=== PATIENT | female | born 1975 | race Caucasian/White ===

== ENCOUNTER 2017-12-04 08:11 | Outpatient (CLI) | payer BC ==
--- NOTE | 2017-12-04 14:15 | NM ---
NUCLEAR MEDICINE PARATHYROID SESTAMIBI SCAN: 12/04/2017 HISTORY: Hyperparathyroidism. History of thyroidectomy. TECHNIQUE: Anterior MALAY and SAENZ imaging of the neck is obtained immediately, one hour following, and two hours f ollowing the intravenous administration of 26.4 millicuries technetium 99m labeled sestamibi. SPECT imaging of the neck, in the axial, coronal, and sagittal planes, is then obtained. FINDINGS: There is no radiotracer activity overlying the region of the thyroid bed on the immediate one hour or two hour post injecting imaging. SPECT imaging demonstrates no abnormal radiotracer activity in the thyroidectomy bed. Salivary gland activity is noted on all provided imaging. IMPRESSION: No scintigraphic evidence of abnormal parathyroid tissue. POS: ERIKA
== END 2017-12-04 08:12 | disposition home or self-care (01) ==
LOC: NM 08:11
PROVIDERS: ATTEND Specialist
DX: E21.3 Hyperparathyroidism, unspecified (principal)
CPT/HCPCS: 78072; A9500

== ENCOUNTER 2017-12-19 07:39 | Outpatient (CLI) | payer BC | END 2017-12-19 07:40 | disposition home or self-care (01) | LOC: BICCT 07:39 | PROVIDERS: ATTEND Specialist | DX: E21.3 Hyperparathyroidism, unspecified (principal); E89.0 Postprocedural hypothyroidism | CPT/HCPCS: 70492 ==

== ENCOUNTER 2019-09-03 06:35 | Outpatient (CLI) | payer BC, OTHER ==
[2019-09-03 18:04] LABS: SARS-CoV-2 MS2 Positive; SARS-CoV-2 N Gene Negative; SARS-CoV-2 S Gene Negative; SARS-CoV-2 orf1ab Negative
== END 2019-09-03 06:36 | disposition home or self-care (01) ==
LOC: LABBT 06:35
PROVIDERS: ATTEND Neurological Surgery
DX: Z01.812 Encounter for preprocedural laboratory examination (principal); Z11.59 Encounter for screening for other viral diseases; M54.12 Radiculopathy, cervical region
CPT/HCPCS: 87635; U0003

== ENCOUNTER 2019-09-06 05:35 | Day surgery (SDC) | payer BC ==
[2019-09-03 09:57] VITALS: BMI 28.6
--- NOTE | 2019-09-05 16:09 | HP ---
HISTORY OF PRESENT ILLNESS: Ms. Stokes is a pleasant 44-year-old woman, here today to discuss severe bilateral upper extremity symptoms of neck pain that radiates into the bilateral shoulders as well as some extension into the biceps, but also at times the triceps, fitting potentially C6 and C7 pattern. She has an MRI both from 2017 and then a more recent one at [facility] that reveals significant foraminal stenosis at C5-C6 and C6-C7 that would well fit her patterns of pain. She has attempted epidural steroid injections and exercises that unfortunately had provided minimal relief. PHYSICAL EXAMINATION: On exam, she is alert and oriented x3. Gait is normal. No ataxia. She has negative Spurling's bilaterally. Has some pain with movement in the right upper extremity within the shoulder. PAST MEDICAL HISTORY: Significant for kidney stones, hypothyroidism, anemia. PAST SURGICAL HISTORY: Cholecystectomy, hysterectomy, thyroidectomy, unspecified ear surgery. MEDICATIONS: Gabapentin. ALLERGIES: NO KNOWN DRUG ALLERGIES. ASSESSMENT: Cervical radiculopathy. PLAN: Dr. Medeiros met with the patient, reviewed imaging, and advocated for C5 through C7 ACDF. He explained to the patient the risks, benefits, and alternatives to the procedure. The patient expressed understanding and elected to move forward with surgery as discussed. I do believe the patient is mentally competent and capable of making medical decisions for herself. We will move forward with surgery as planned. Job ID: [id number]
[2019-09-06] MEDS ORDERED: Thrombin 5000 UNITS/5 ML VIAL ONE ×2 (06:26→08:34)
[2019-09-06] MEDS ORDERED: HYDROmorphone 2 MG/ML VIAL ONE ×2 (06:44→07:28)
[2019-09-06] MEDS ORDERED: Midazolam HCl 2 mg/2 ml Vial ONE ×2 (06:51→07:28)
[2019-09-06] MEDS ORDERED: HYDROcodone/Acetaminophen 5/325 mg Tablet ONE (09:55)
[2019-09-06] MEDS ORDERED: Ondansetron PF 4 MG/2 ML Vial ONE ×2 (11:16→12:15)
[2019-09-06] MEDS ORDERED: Ondansetron ODT 4 MG TAB ONE (11:17)
[2019-09-06] MEDS ORDERED: Lidocaine 1% PF 5 ML VIAL ONE ×2 (12:15)
[2019-09-06] MEDS ORDERED: Glycopyrrolate 0.2 MG/ML 5 ML SYRINGE ONE (12:15)
[2019-09-06] MEDS ORDERED: Dexamethasone 20 MG/5 ML VIAL ONE (12:15)
[2019-09-06] MEDS ORDERED: Rocuronium Bromide 10 MG/ML (10ML VIAL) ONE (12:15)
[2019-09-06] MEDS ORDERED: PROPOFOL 200 MG/20 ML VIAL ONE (12:15)
--- NOTE | 2019-09-06 13:22 | OP ---
DATE OF PROCEDURE: 09/06/2019 PV INSTALLER TECH: Fady Morales PA-C INDICATION: Pain. DIAGNOSIS: Cervical radiculopathy. PROCEDURE PERFORMED: Anterior cervical diskectomy and fusion, C5 to C7. DESCRIPTION OF PROCEDURE: The patient was brought into the operating room and placed under general anesthesia. She was placed on table in a supine position. A transverse incision was planned over the lateral aspect of the neck on the right. After prepping and draping and after an appropriate preoperative pause, the incision was created. The underlying platysma muscle was identified and incised. A blunt tissue plane anterior to the sternocleidomastoid muscle was used to gain access to the prevertebral space. Self-retaining retractors were placed. The C-arm images were obtained to confirm the appropriate level. An annulotomy was performed in the C6-C7 disk space, where all disk material as well as anterior and posterior osteophytes were removed. After completing the decompression, a 7-mm lordotic PEEK cage packed with allograft and autograft material was placed within the interbody space. We then redirected our attention level above at C5-C6, where again an annulotomy was performed. All disk material as well as anterior and posterior osteophytes were removed. After decompressing that segment, a 6-mm lordotic PEEK cage packed with allograft and autograft material was placed within the interbody space. An anterior cervical plate was then fashioned to the front of spine and secured with a total of 6 screws. Midline and lateral structures were inspected and found to be free from significant trauma. The wound was irrigated. Hemostasis was maintained throughout. The wound was then closed in anatomic layers and a pressure dressing was applied. There were no known procedural complications. Job ID: [id number]
== END 2019-09-06 12:05 | disposition home or self-care (01) ==
LOC: SDC 05:35
PROVIDERS: ATTEND Neurological Surgery
PROC: 0RG20A0 Fusion of 2 or more Cervical Vertebral Joints with Interbody Fusion Device, Anterior Approach, Anterior Column, Open Approach (ICD-10-PCS; principal; 2019-09-06)
PROC: 0RG2070 Fusion of 2 or more Cervical Vertebral Joints with Autologous Tissue Substitute, Anterior Approach, Anterior Column, Open Approach (ICD-10-PCS; principal; 2019-09-06)
PROC: 0RT30ZZ Resection of Cervical Vertebral Disc, Open Approach (ICD-10-PCS; principal; 2019-09-06)
DX: M54.12 Radiculopathy, cervical region (principal); E03.9 Hypothyroidism, unspecified; D64.9 Anemia, unspecified; Z79.899 Other long term (current) drug therapy; Z88.2 Allergy status to sulfonamides; Z88.5 Allergy status to narcotic agent; Z88.6 Allergy status to analgesic agent
CPT/HCPCS: 76000; C1713; C1776; J0690; J1100; J1170; J2001; J2250; J2405; J2704; Q0162

== ENCOUNTER 2019-10-17 08:13 | Outpatient (CLI) | payer BC ==
--- NOTE | 2019-10-17 09:04 | RAD ---
Exam: 3 views cervical spine HISTORY: Cervical radiculopathy. Previous cervical fusion. FINDINGS: Predental space is normal. No prevertebral soft tissue swelling. Cervical spine vertebral b rachael heights are maintained. There is no fracture. Straightening of cervical lordosis as noted. There is an anterior fusion plate with transvertebral body screw at C5, C6 and C7. No perihardware viet cency. C5-C6 and C6-C7 disc prosthesis Grade 1 anterolisthesis of C3 upon C4 and C4. On the open-mouth projection, lateral masses of C1 and C2 articulate probably. Intact odontoid proces s IMPRESSION: Uncomplicated cervical fusion from C5 through C7.
== END 2019-10-17 08:14 | disposition home or self-care (01) ==
LOC: TBSIIMAG 08:13
PROVIDERS: ATTEND Neurological Surgery
DX: M54.12 Radiculopathy, cervical region (principal); Z98.1 Arthrodesis status
CPT/HCPCS: 72040

== ENCOUNTER 2022-05-04 10:24 | Outpatient (CLI) | payer BC ==
[~2022-05-04 10:24] MED LIST: Iopamidol 370 76% 100 ML VIAL ONE
== END 2022-05-04 10:25 | disposition home or self-care (01) ==
LOC: CT 10:24
PROVIDERS: ATTEND Physician Assistant Medical
DX: R10.32 Left lower quadrant pain (principal); K57.30 Diverticulosis of large intestine without perforation or abscess without bleeding
CPT/HCPCS: 74177

== ENCOUNTER 2022-05-30 07:30 | Inpatient (IN) | payer BC ==
[2022-05-31 12:15] VITALS: BMI 31.0
[2022-06-02 07:48] LABS: SARS-CoV-2 NAA Rapid Test Not Detected (NotDetected)
[2022-06-02] MEDS ORDERED: Bupivacaine PF 0.5% 30 ML VIAL ONE (08:03)
[2022-06-02] MEDS ORDERED: Midazolam HCl 2 mg/2 ml Vial ONE ×2 (08:03→08:16)
[2022-06-02] MEDS ORDERED: SUGAMMADEX SODIUM 200 MG/2 ML VIAL ONE (08:33)
[2022-06-02] MEDS ORDERED: HYDROmorphone 2 MG/ML VIAL ONE (08:33)
[2022-06-02] MEDS ORDERED: Sodium Chloride 0.9% 100 ML ONE (08:44)
[2022-06-02] MEDS ORDERED: cefOXitin 2 GM VIAL ONE (08:44)
[2022-06-02] MEDS ORDERED: Ondansetron PF 4 MG/2 ML Vial ONE (09:00)
[2022-06-02] MEDS ORDERED: Dexamethasone 20 MG/5 ML VIAL ONE (09:00)
[2022-06-02] MEDS ORDERED: Rocuronium Bromide 10 MG/ML (10ML VIAL) ONE (09:00)
[2022-06-02] MEDS ORDERED: PHENYLEPHRINE-NS 100 MCG/ML 10 ML SYRINGE ONE (09:00)
[2022-06-02] MEDS ORDERED: Lidocaine 1% PF 5 ML VIAL ONE (09:00)
[2022-06-02] MEDS ORDERED: PROPOFOL 200 MG/20 ML VIAL ONE (09:00)
[2022-06-02] MEDS ORDERED: Promethazine HCl 25 MG/ML VIAL IM PRN ×3 (11:03→12:23)
[2022-06-02] MEDS ORDERED: HYDROmorphone 10 mg/100 ml CADD IVPB PRN (11:03)
[2022-06-02] MEDS ORDERED: Ondansetron HCl/PF 4 MG/2 ML Vial IVP PRN (11:03)
[2022-06-02] MEDS ORDERED: Naloxone HCl 0.4 mg/ml Vial IV PRN (11:03)
[2022-06-02] MEDS ORDERED: Ondansetron PF 4 MG/2 ML Vial IVP PRN ×2 (11:03→12:23)
[2022-06-02] MEDS ORDERED: diphenhydrAMINE 50 MG/ML VIAL IVP PRN (11:03)
[2022-06-02] MEDS ORDERED: HYDROmorphone 2 MG/ML VIAL SLOW IVP PRN (11:03)
[2022-06-02] MEDS ORDERED: diphenhydrAMINE 50 MG/ML VIAL IM PRN (11:03)
[2022-06-02] MEDS ORDERED: Communication Order-Pharmacy FS SCH (11:15)
[2022-06-02] MEDS ORDERED: HYDROmorphone 0.5 MG/0.5 ML SYRINGE ONE ×3 (11:25→12:03)
[2022-06-02] MEDS ORDERED: hydrALAZINE 20 MG/ML VIAL SLOW IVP PRN (12:23)
[2022-06-02] MEDS ORDERED: Ipratropium/Albuterol 3 ML NEB NEB PRN (12:23)
[2022-06-02] MEDS ORDERED: Promethazine HCl 25 MG/ML VIAL ONE (12:36)
[2022-06-02] MEDS ORDERED: D5 1/2 NS w/20 mEq KCL 1,000 ML ONE (13:01)
[2022-06-02] MEDS: D5 1/2 NS w/20 mEq KCL 1,000 ML IV SCH ×2 (13:45→21:31)
[2022-06-02] MEDS ORDERED: cefOXitin 2 GM in Sodium Chloride 0.9% 100 ML IVPB SCH (14:00)
[2022-06-02] MEDS: cefOXitin 2 GM in Sodium Chloride 0.9% 100 ML IVPB SCH (17:34)
[2022-06-02] MEDS: Famotidine/PF 20 mg/2ml Vial SLOW IVP SCH (19:57)
[2022-06-02] MEDS: Famotidine 20 MG TAB PO SCH (20:07)
[2022-06-03] MEDS: cefOXitin 2 GM in Sodium Chloride 0.9% 100 ML IVPB SCH (00:19)
[2022-06-03] MEDS: Levothyroxine 150 MCG TAB PO SCH (04:57)
[2022-06-03] MEDS: D5 1/2 NS w/20 mEq KCL 1,000 ML IV SCH ×3 (05:05→20:45)
[2022-06-03 06:24] LABS: #Lymphocytes 2.1 thou/uL (1.20-3.40); #Monocytes 1.4 thou/uL (0.11-0.59); #Neutrophils 8.8 thou/uL (1.40-6.50); %Basophils 0.2 % (0.0-1.0); %Eosinophils 0.2 % (0.0-10.0); %Lymphocytes 16.6 % (21.0-51.0); %Monocytes 11.3 % (0.0-10.0); %Neutrophils 71.7 % (42.0-75.0); Hemoglobin 12.4 g/dL (12.0-16.0); Mean Corpuscular HGB CONC 33.1 g/dL (32.0-36.0); Mean Corpuscular Hemoglobin 33.7 pg (27.0-31.0); Mean Platelet Volume 7.9 fL (7.4-10.4); Platelet Count 248 10x3/uL (130-400); RBC Distribution Width 11.1 % (11.5-14.5); Red Blood Cell (RBC) Count 3.68 mill/uL (4.20-5.40); White Blood Cell (WBC) Count 12.3 10x3/uL (4.8-10.8)
[2022-06-03 06:51] LABS: Anion Gap 11 mmol/L (10-20); BUN (Urea Nitrogen) 5 mg/dL (7.0-18.7); Calc. Creatinine Clearance 144 mL/min (70-130); Calcium 8.9 mg/dL (7.8-10.44); Carbon Dioxide 25 mmol/L (22-29); Chloride 104 mmol/L (98-107); Estimated GFR 107; Glucose 118 mg/dL (70-105); Potassium 4.8 mmol/L (3.5-5.1); Sodium 135 mmol/L (136-145)
[2022-06-03] MEDS ORDERED: PLECANATIDE 3 MG PO SCH (09:00)
[2022-06-03] MEDS: Famotidine/PF 20 mg/2ml Vial SLOW IVP SCH ×2 (09:10→20:44)
[2022-06-03] MEDS: Famotidine 20 MG TAB PO SCH ×2 (09:10→20:45)
[2022-06-03] MEDS ORDERED: HYDROcodone/Acetaminophen 10/325 mg Tablet PO PRN (09:31)
[2022-06-03] MEDS ORDERED: traMADol HCl 50 MG TAB PO PRN (09:32)
[2022-06-03] MEDS: traMADol HCl 50 MG TAB PO PRN ×2 (11:10→21:55)
[2022-06-03] MEDS ORDERED: Acetaminophen 325 MG TAB PO PRN (11:50)
[2022-06-03] MEDS ORDERED: HYDROmorphone/PF 10 MG in Sodium Chloride 0.9% 99 ML IVPB PRN (12:30)
[2022-06-03] MEDS: diphenhydrAMINE 25 MG CAP PO PRN ×2 (12:42→19:34)
[2022-06-03] MEDS: HYDROcodone/Acetaminophen 10/325 mg Tablet PO PRN ×2 (13:47→17:52)
[2022-06-03] MEDS: Docusate 100 MG CAP PO SCH (19:52)
[2022-06-03] MEDS ORDERED: Temazepam 15 MG CAP PO SCH (21:00)
[2022-06-04] MEDS: HYDROcodone/Acetaminophen 10/325 mg Tablet PO PRN ×2 (00:04→08:32)
[2022-06-04] MEDS: diphenhydrAMINE 25 MG CAP PO PRN (00:05)
[2022-06-04 03:56] VITALS: TEMP 98.2
[2022-06-04] MEDS: traMADol HCl 50 MG TAB PO PRN (04:15)
[2022-06-04] MEDS ORDERED: Levothyroxine 150 MCG TAB PO SCH (06:00)
[2022-06-04] MEDS: Levothyroxine 150 MCG TAB PO SCH (06:09)
[2022-06-04] MEDS: D5 1/2 NS w/20 mEq KCL 1,000 ML IV SCH (06:09)
[2022-06-04] MEDS: Docusate 100 MG CAP PO SCH (08:33)
[2022-06-04] MEDS: Famotidine 20 MG TAB PO SCH (08:33)
[2022-06-04 09:04] VITALS: BP 125/80
[2022-06-04] MEDS: Famotidine/PF 20 mg/2ml Vial SLOW IVP SCH (10:09)
== END 2022-06-04 11:40 | disposition home or self-care (01) | DRG 331 ==
LOC: SURG A 06-02 05:52
PROVIDERS: ADMIT Surgery; ATTEND Surgery
PROC: 0DTN4ZZ Resection of Sigmoid Colon, Percutaneous Endoscopic Approach (ICD-10-PCS; principal; 2022-06-02)
DX: K57.30 Diverticulosis of large intestine without perforation or abscess without bleeding (principal); E03.9 Hypothyroidism, unspecified; E05.00 Thyrotoxicosis with diffuse goiter without thyrotoxic crisis or storm; Z98.890 Other specified postprocedural states; Z90.49 Acquired absence of other specified parts of digestive tract; Z20.822 Contact with and (suspected) exposure to COVID-19
CPT/HCPCS: 36415; 36416; 80048; 83036; 85025; 88307; A4649; J0694; J1100; J1170; J1650; J2250; J2405; J2550; J2704; J3480; J3490; S0020; S0028; U0002

== ENCOUNTER 2022-05-30 07:38 | Outpatient (CLI) | payer BC ==
[2022-05-30 08:57] LABS: #Basophils 0.1 10x3/uL (0.0-0.2); #Eosinphils 0.1 10x3/uL (0.0-0.5); #Monocytes 0.7 10x3/uL (0.0-1.1); #Neutrophils 2.8 10x3/uL (1.5-8.4); %Basophils 1.1 % (0.0-2.0); %Eosinophils 1.8 % (0.0-6.0); %Lymphocytes 30.4 % (18.0-47.0); %Monocytes 13.7 % (0.0-10.0); %Neutrophils 52.3 % (40.0-75.0); Hemoglobin 14.5 g/dL (12.0-15.5); Mean Corpuscular HGB CONC 34.3 g/dL (32.0-36.0); Mean Corpuscular Hemoglobin 33.4 pg (27.0-33.0); Mean Corpuscular Volume 97.5 fl (81.6-98.3); Mean Platelet Volume 10.4 fl (7.4-10.4); Platelet Count 264 10x3/uL (150-450); Red Blood Cell (RBC) Count 4.34 10x6/uL (3.90-5.03); White Blood Cell (WBC) Count 5.4 10x3/uL (3.5-10.5)
[2022-05-30 09:04] LABS: Anion Gap 13 mmol/L (10-20); BUN (Urea Nitrogen) 11 mg/dL (7.0-18.7); Calc. Creatinine Clearance 0 mL/min (70-130); Calcium 9.6 mg/dL (7.8-10.44); Carbon Dioxide 25 mmol/L (22-29); Chloride 105 mmol/L (98-107); Estimated GFR 90; Glucose 91 mg/dL (70-105); Potassium 4.4 mmol/L (3.5-5.1); Sodium 139 mmol/L (136-145)
[2022-05-30 12:54] LABS: Hemoglobin A1c 5.1 % (4.0-6.0)
== END 2022-05-30 07:39 | disposition home or self-care (01) ==
LOC: LABBT 07:38
PROVIDERS: ATTEND Surgery
DX: Z01.812 Encounter for preprocedural laboratory examination (principal); K57.92 Diverticulitis of intestine, part unspecified, without perforation or abscess without bleeding
CPT/HCPCS: 80048; 83036; 85025

== ENCOUNTER 2022-06-09 08:54 | Emergency (ER) | payer BC ==
[2022-06-09 09:46] LABS: #Eosinphils 0.2 thou/uL (0.0-0.7); #Lymphocytes 1.1 thou/uL (1.20-3.40); #Monocytes 0.7 thou/uL (0.11-0.59); #Neutrophils 4.3 thou/uL (1.40-6.50); %Basophils 0.3 % (0.0-1.0); %Eosinophils 2.8 % (0.0-10.0); %Monocytes 10.8 % (0.0-10.0); %Neutrophils 68.1 % (42.0-75.0); Hemoglobin 14.7 g/dL (12.0-16.0); Mean Corpuscular HGB CONC 33.8 g/dL (32.0-36.0); Mean Corpuscular Hemoglobin 33.7 pg (27.0-31.0); Mean Corpuscular Volume 99.7 fl (78.0-98.0); Mean Platelet Volume 7.5 fL (7.4-10.4); Platelet Count 393 10x3/uL (130-400); RBC Distribution Width 10.9 % (11.5-14.5); Red Blood Cell (RBC) Count 4.36 mill/uL (4.20-5.40); White Blood Cell (WBC) Count 6.3 10x3/uL (4.8-10.8)
[2022-06-09 10:04] LABS: ALT (SGPT) 33 U/L (8-55); AST (SGOT) 20 U/L (5-34); Albumin 4.3 g/dL (3.5-5.0); Alkaline Phosphatase 71 U/L (40-110); Anion Gap 20 mmol/L (10-20); BUN (Urea Nitrogen) 8 mg/dL (7.0-18.7); Bilirubin, Total 0.5 mg/dL (0.2-1.2); Calc. Creatinine Clearance 0 mL/min (70-130); Calcium 10.2 mg/dL (7.8-10.44); Carbon Dioxide 22 mmol/L (22-29); Chloride 102 mmol/L (98-107); Estimated GFR 90; Globulin 3.8 g/dL (2.4-3.5); Glucose 73 mg/dL (70-105); Protein, Total 8.1 g/dL (6.0-8.3); Sodium 138 mmol/L (136-145)
[2022-06-09] MEDS ORDERED: Acetaminophen 500 MG TAB ONE (10:36)
[2022-06-09] MEDS ORDERED: Ibuprofen 800 MG TAB ONE (10:36)
[2022-06-09] MEDS ORDERED: Metoclopramide HCl 10 MG/2 ML VIAL ONE (10:36)
[2022-06-09 10:37] LABS: Bilirubin Negative (Negative); Blood, Urine Negative (Negative); Clarity Clear (Clear); Glucose, Urine (Dipstick) Normal (Negative); Ketone, Urine 80 mg/dL (Negative); Leukocyte Negative Leu/uL (Negative); Nitrite Negative (Negative); Protein, Urine (Dipstick) Negative (Neg-Trace); Specific Gravity, Urine 1.007 (1.002-1.036); Urobilinogen Normal mg/dL (Less than 2)
[2022-06-09] MEDS ORDERED: HYDROmorphone 0.5 MG/0.5 ML SYRINGE ONE (12:03)
[2022-06-09] MEDS ORDERED: Iopamidol-370 76% 500 ML 1 ML ONE (13:14)
[2022-06-09] MEDS ORDERED: GASTROGRAFIN 30 ML BOT ONE (13:14)
[2022-06-09 13:36] LABS: Anion Gap 20 mmol/L (10-20); BUN (Urea Nitrogen) 9 mg/dL (7.0-18.7); Calc. Creatinine Clearance 0 mL/min (70-130); Calcium 9.2 mg/dL (7.8-10.44); Carbon Dioxide 18 mmol/L (22-29); Chloride 105 mmol/L (98-107); Estimated GFR 104; Glucose 73 mg/dL (70-105); Potassium 5.7 mmol/L (3.5-5.1); Sodium 137 mmol/L (136-145)
[2022-06-09 15:04] LABS: Anion Gap 19 mmol/L (10-20); BUN (Urea Nitrogen) 8 mg/dL (7.0-18.7); Calc. Creatinine Clearance 0 mL/min (70-130); Calcium 9.5 mg/dL (7.8-10.44); Carbon Dioxide 17 mmol/L (22-29); Chloride 107 mmol/L (98-107); Estimated GFR 104; Glucose 71 mg/dL (70-105); Potassium 4.2 mmol/L (3.5-5.1); Sodium 139 mmol/L (136-145)
== END 2022-06-09 15:25 | disposition home or self-care (01) ==
LOC: ERS 08:54
DX: G89.18 Other acute postprocedural pain (principal); R10.32 Left lower quadrant pain
CPT/HCPCS: 36415; 74177; 96365; J1170; J2765

== ENCOUNTER 2023-04-10 13:33 | Outpatient (CLI) | payer BC | END 2023-04-10 13:34 | disposition home or self-care (01) | LOC: BICRAD 13:33 | PROVIDERS: ATTEND Internal Medicine Gastroenterology | DX: K59.00 Constipation, unspecified (principal); R14.0 Abdominal distension (gaseous) | CPT/HCPCS: 74019 ==

== ENCOUNTER 2023-06-11 10:38 | Outpatient (CLI) | payer BC | END 2023-06-11 10:39 | disposition home or self-care (01) | LOC: RAD 10:38 | PROVIDERS: ATTEND Colon & Rectal Surgery | DX: K59.00 Constipation, unspecified (principal) | CPT/HCPCS: 74018 ==

== ENCOUNTER 2023-06-12 08:08 | Outpatient (CLI) | payer BC | END 2023-06-12 08:09 | disposition home or self-care (01) | LOC: BICRAD 08:08 | PROVIDERS: ATTEND Colon & Rectal Surgery | DX: K59.00 Constipation, unspecified (principal) | CPT/HCPCS: 74018 ==

== ENCOUNTER 2023-06-14 07:40 | Outpatient (CLI) | payer BC | END 2023-06-14 07:41 | disposition home or self-care (01) | LOC: BICRAD 07:40 | PROVIDERS: ATTEND Colon & Rectal Surgery | DX: K59.00 Constipation, unspecified (principal); T18.8XXA Foreign body in other parts of alimentary tract, initial encounter | CPT/HCPCS: 74018 ==

== ENCOUNTER 2023-06-16 07:42 | Outpatient (CLI) | payer BC | END 2023-06-16 07:43 | disposition home or self-care (01) | LOC: BICRAD 07:42 | PROVIDERS: ATTEND Colon & Rectal Surgery | DX: K59.00 Constipation, unspecified (principal) | CPT/HCPCS: 74018 ==